=== PATIENT | male | born 1985 | race Caucasian/White ===

== ENCOUNTER 2020-01-05 10:54 | Emergency (ER) | payer OTHER, SELFPAY ==
[2020-01-05] VITALS (19 sets, daily range): BP systolic 117–128; BP diastolic 69–96; PULSE 63–98; RESP 15–32; TEMP 36.6; O2SAT 94–100
--- NOTE | ~2020-01-05 | XR_ITS ---
EXAMINATION: XR chest 1V portable 01/05/2020 12:43 INDICATION: Altered mental status. Overdose. PROCEDURE: AP portable chest COMPARISON: No prior studies for comparison. FINDINGS: The lungs are clear. The cardiomediastinal silhouette is within normal limits. There are no pleural effusions. There is no pneumothorax suspected. IMPRESSION: 1: NO ACUTE CARDIOPULMONARY DISEASE. Reviewed, dictated and finalized at location A.
--- NOTE | 2020-01-05 11:05 | ECG_ITS ---
Measurements Intervals [place] Rate: 71 P: 66 [place]: 143 QRS: 44 QRSD: 104 T: 41 QT: 435 QTc: 474 Interpretive Statements SINUS RHYTHM NORMAL ECG Electronically Signed On 01-05-2020 11:19:19 CDT by Ricco Mortensen D.O.
--- NOTE | 2020-01-05 11:06 | ED.AMS ---
HPI - Altered Mental Status General Chief Complaint: Altered Mental Status Stated Complaint: ?OD Time Seen by Provider: 01/05/20 10:58 Source: patient, RN notes reviewed and police Mode of arrival: ambulatory Limitations: no limitations History of Present Illness HPI narrative: Pt is a 34 y/o male presenting to the ED c/o AMS. Police at bedside reports the pt turned himself in at the Police station due to having outstanding warrants at 0900 this morning and within 15 minutes had vomited and experienced urinary incontinence, bowel incontinence, and diaphoresis. Pt states he currently feels fine compared to earlier, and denies any hallucinations, CP, or ABD pain. Pt states the only medication he has taken today is his daily prescription of 30 mg Buspar, and denies any drug use. Pt notes he has been drinking beer heavily over the past 4 days, and states he last consumed alcohol yesterday night. Pt reports he did not consume alcohol heavily before 4 days ago. Onset (ago): hour(s) (2) Context: alcohol abuse Associated symptoms: diaphoresis (Per Police), nausea/vomiting (Vomited (per Police)) and incontinence (Urinary (per Police); Bowel (per Police)) Related Data Home Medications Medication Instructions Recorded Confirmed buspirone mg 01/05/20 dextroamphetamine-amphetamine 01/05/20 trazodone 01/05/20 Allergies Allergy/AdvReac Type Severity Reaction Status Date / Time No Known Allergies Allergy Unverified 04/18/19 20:00 Review of Systems Review of Systems: Narrative: All systems reviewed & are unremarkable except as noted in HPI and below Cardiovascular: Cardiovascular: Denies chest pain and Reports diaphoresis (Per Police) Gastrointestinal: Gastrointestinal: Denies abdominal pain, Reports fecal incontinence (Per Police) and Reports vomiting (Per Police) Genitourinary: Genitourinary: Reports urinary incontinence (Per Police) Psychiatric: Psychiatric: Denies other (Hallucinations) PMFSH Past Medical History Medical History No significant past medical history Surgical History Surgical History No significant past surgical history Social History Social History Smoking status: Unknown if ever smoked Exam Narrative: Exam Narrative: GENERAL: Well-appearing, well-nourished, and in no acute distress. HEAD: Normocephalic, atraumatic EYES: PERRLA and EOMI, conjunctiva clear without discharge THROAT:Mucous membranes moist, Oropharynx normal without erythema, exudate, peritonsillar swelling or fluctuance NECK: Supple, without lymphadenopathy or mass RESPIRATORY: No respiratory distress, Airway patent, Respirations non-labored, Clear to auscultation without rales, rhonchi or wheeze HEART: Regular rate and rhythm. No murmur heard. Normal peripheral pulses. ABDOMEN: Soft, nontender, nondistended, normal active bowel sounds. No masses. No rebound or guarding, No organomegaly. EXTREMITIES: No edema, normal strength with full range of motion. SKIN: Warm, dry, normal color without rash NEURO: Alert and oriented x3. CN 2-12 grossly intact. No focal deficits. PSYCH: Normal mood and affect. Course Course Emergency Course: [facility]. Symptoms have all resolved on arrival. His vitals are normal and he is not exhibiting Delirium or withdrawal symptoms. Vital Signs Vital signs: Vital Signs Temperature 97.9 F 01/05/20 10:52 Pulse Rate 90 01/05/20 10:52 Respiratory Rate 22 H 01/05/20 10:52 Blood Pressure 128/77 01/05/20 10:52 Pulse Oximetry 97 01/05/20 10:52 Temperature 97.9 F 01/05/20 10:52 Pulse Rate 65 01/05/20 14:32 Respiratory Rate 16 01/05/20 14:32 Blood Pressure 126/96 H 01/05/20 14:32 Pulse Oximetry 100 01/05/20 13:02 MDM - Altered Mental Status Lab Data Attestation: I reviewed the patient
[2020-01-05 11:32] LABS: Basophils Percent Auto 0.4 % (0.2-1.2); Eosinophils Absolute Auto 0.1 K/mm3 (0-0.3); Eosinophils Percent Auto 0.9 % (0-4.4); Hematocrit 43.5 % (42.0-52.0); Immature Granulocyte Absolute 0.08 K/mm3 (0.00-0.031); Lymphocytes Absolute Auto 1.67 K/mm3 (0.9-3.2); Lymphocytes Percent Auto 21.7 % (18.3-44.2); Mean Corpuscular HGB Conc 34.5 g/dl (32-36); Mean Corpuscular Hemoglobin 32.1 pg (26-34); Mean Corpuscular Volume 93.1 fl (80-100); Mean Platelet Volume 8.6 fl (7.4-10.4); Monocytes Absolute Auto 0.5 K/mm3 (0.1-0.6); Monocytes Percent Auto 5.9 % (2.6-8.5); Neutrophils Absolute Auto 5.4 K/mm3 (1.3-6.7); Neutrophils Percent Auto 70.1 % (45.5-73.1); Platelet Count Result 294 k/mm3 (150-375); Red Blood Count 4.67 M/mm3 (4.6-6.20); Red Cell Distribution Width 13.1 % (11.5-14.5); White Blood Count 7.7 K/mm3 (4.5-10.0)
[2020-01-05 11:45] LABS: Creatine Kinase 195 U/L (55-170)
[2020-01-05 11:45] LABS: Alanine Aminotransferase 27 U/L (4-50); Albumin Level 4.4 g/dL (3.5-5.1); Alkaline Phosphatase 85 U/L (38-126); Aspartate Amino Transferase 40 U/L (17-59); Bilirubin,Total 0.3 mg/dL (0.2-1.3); Blood Urea Nitrogen 6 mg/dL (9-20); Carbon Dioxide 23 mmol/L (22-30); Chloride 103 mmol/L (98-107); Estimated Glomerular Filt Rate > 60; Glucose 233 mg/dL (75-110); Sodium 139 mmol/L (137-145)
[2020-01-05 11:54] LABS: Acetaminophen < 10 ug/mL (10-30); Ethanol 160 mg/dL (<10); Salicylate < 1.0 mg/dL (2-20)
[2020-01-05 11:56] LABS: Add Urine Microscopic? YES; Appearance Urine Clear (Clear); Bilirubin Urine Negative (Negative); Blood Urine Negative (Negative); Color Urine Yellow (Yellow); Glucose Urine UA 3+ mg/dL (Negative); Ketones Urine Negative (Negative); Leukocyte Esterase Ur Negative LEU/UL (Negative); Mucus Urine Rare /lpf; Nitrate Urine Negative (Negative); Protein Urine Negative (Negative); RBC Urine 0-2 /hpf (0-2); Specific Grav Ur 1.009 (1.001-1.035); Urobilinogen Urine Negative mg/dL (<2.0); WBC Urine 0-3 /hpf
[2020-01-05 12:17] LABS: Amphetamine Screen Urine Negative (Negative); Barbiturate Screen Urine Negative (Negative); Benzodiazepines Screen Urine Negative (Negative); Cannabinoid Screen Urine Positive (Negative); Cocaine Screen Urine Negative (Negative); Methadone Screen Urine Negative (Negative); Opiate Screen Urine Negative (Negative); Phencyclidine Screen Urine Negative (Negative)
[2020-01-05] MEDS: LACTATED RINGERS 1,000 ML 999 ML IV CONT (12:50)
[2020-01-05] MEDS: POTASSIUM CHLORIDE 20 MEQ TABLET 40 MEQ PO (12:53)
[2020-01-05] MEDS: ONDANSETRON INJ 4 MG/2 ML VIAL IV PUSH (12:53)
== END 2020-01-05 14:33 ==
PROVIDERS: Emergency Provider General Practice; Referring Provider Internal Medicine
DX: R11.2 Nausea with vomiting, unspecified (principal)
CPT/HCPCS: 36415; 71045; 80053; 80307; 81001; 82550; 84443; 85025; 93005; 96361; 96374; 99284; A9270; J2405; J7120

== ENCOUNTER 2022-03-14 20:54 | Emergency (ER) | payer BC, SELFPAY ==
[2022-03-14 21:06] VITALS: BP 117/86; PULSE 86; RESP 16; TEMP 36.8; O2SAT 100
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
[2022-03-14 22:11] LABS: Basophils Absolute Auto 0.1 K/mm3 (0.0-0.1); Basophils Percent Auto 1.3 % (0.2-1.2); Eosinophils Absolute Auto 0.2 K/mm3 (0-0.3); Eosinophils Percent Auto 2.6 % (0-4.4); Hematocrit 42.6 % (42.0-52.0); Hemoglobin 14.5 g/dL (14.0-18.0); Immature Granulocyte Absolute 0.06 K/mm3 (0.00-0.031); Immature Granulocyte Percent A 0.8 % (0-0.5); Lymphocytes Absolute Auto 2.58 K/mm3 (0.9-3.2); Lymphocytes Percent Auto 33.7 % (18.3-44.2); Mean Corpuscular Hemoglobin 31.4 pg (26-34); Mean Corpuscular Volume 92.2 fl (80-100); Mean Platelet Volume 8.7 fl (7.4-10.4); Monocytes Absolute Auto 0.5 K/mm3 (0.1-0.6); Monocytes Percent Auto 6.5 % (2.6-8.5); Neutrophils Absolute Auto 4.2 K/mm3 (1.3-6.7); Neutrophils Percent Auto 55.1 % (45.5-73.1); Platelet Count Result 358 k/mm3 (150-375); Red Blood Count 4.62 M/mm3 (4.6-6.20); Red Cell Distribution Width 12.6 % (11.5-14.5); White Blood Count 7.7 K/mm3 (4.5-10.0)
[2022-03-14 22:23] LABS: Acetaminophen < 10 ug/mL (10-30); Ethanol 252 mg/dL (<10); Salicylate < 1.0 mg/dL (2-20)
[2022-03-14 22:24] LABS: Alanine Aminotransferase 22 U/L (6-50); Albumin Level 4.2 g/dL (3.5-5.1); Alkaline Phosphatase 71 U/L (38-126); Anion Gap 13 mmol/L (8-16); Aspartate Amino Transferase 37 U/L (17-59); Bilirubin,Total 0.2 mg/dL (0.2-1.3); Blood Urea Nitrogen 10 mg/dL (9-20); Calcium 8.5 mg/dL (8.4-10.2); Carbon Dioxide 26 mmol/L (22-30); Chloride 107 mmol/L (98-107); Estimated CRCL calculation 93 ml/min; Estimated Glomerular Filt Rate > 60; Glucose 100 mg/dL (65-110); Sodium 146 mmol/L (137-145)
[2022-03-14 22:51] LABS: SARS-CoV-2 RNA PCR Negative
[2022-03-14 23:01] LABS: Mucus Urine Rare /lpf; RBC Urine 0-2 /hpf (0-2); WBC Urine 0-3 /hpf
[2022-03-14 23:14] LABS: Appearance Urine Clear (Clear); Bilirubin Urine Negative (Negative); Blood Urine Negative (Negative); Color Urine Yellow (Yellow); Glucose Urine UA Negative (Negative); Ketones Urine Trace mg/dL (Negative); Leukocyte Esterase Ur Negative LEU/UL (Negative); Nitrate Urine Negative (Negative); Protein Urine Negative (Negative); Specific Grav Ur >= 1.030 (1.001-1.035)
[2022-03-14 23:15] LABS: Add Urine Microscopic? YES
--- NOTE | 2022-03-14 23:21 | PC.NURSE ---
Report taken from MIKEL Matamoros. Pt resting on stretcher. Pt on 1:1 observation. Pt scores low on columbia scale due to how patient answers but pt has sitter at bedside due to statements he made to PA.
[2022-03-14 23:26] LABS: Amphetamine Screen Urine Negative (Negative); Barbiturate Screen Urine Negative (Negative); Benzodiazepines Screen Urine Negative (Negative); Cannabinoid Screen Urine Positive (Negative); Cocaine Screen Urine Negative (Negative); Methadone Screen Urine Negative (Negative); Opiate Screen Urine Negative (Negative); Phencyclidine Screen Urine Negative (Negative)
--- NOTE | 2022-03-14 23:51 | PC.NURSE ---
Pt becoming agitated and stating he wants to go home. transport driver at bedside to speak with pt.
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
[2022-03-15] MEDS: WATER, STERILE FOR INJECTION 10 ML VIAL XX (00:11)
[2022-03-15] MEDS: OLANZapine 10 MG INJ VIAL 5 MG IM (00:11)
--- NOTE | 2022-03-15 00:57 | PC.NURSE ---
Pt asleep on stretcher.
--- NOTE | 2022-03-15 04:51 | PC.NURSE ---
Patient resting comfortable in bed sleeping at this time
[2022-03-15 08:01] LABS: Ethanol 38 mg/dL (<10)
[2022-03-15 09:55] VITALS: BP 142/76; PULSE 90; RESP 16; O2SAT 98
== END 2022-03-15 10:20 | disposition home or self-care (01) ==
PROVIDERS: General Practice; Physician Assistant; Emergency Provider Emergency Medicine
DX: F41.9 Anxiety disorder, unspecified (principal); F32.A Depression, unspecified; F17.290 Nicotine dependence, other tobacco product, uncomplicated; Z20.822 Contact with and (suspected) exposure to COVID-19
CPT/HCPCS: 36415; 80053; 80307; 81001; 84443; 85025; 96372; 99284; C9803; U0003; U0005

== ENCOUNTER 2022-03-26 19:18 | Emergency (ER) | payer BC, SELFPAY ==
[2022-03-26 19:21] VITALS: BP 141/95; PULSE 125; RESP 20; TEMP 35.8; O2SAT 99
[2022-03-26] MEDS: oxyCODONE/ACETAMINOPHEN (*CRX) 5-325 MG TABLET 1 TABLET PO (20:41)
[2022-03-26] MEDS: AMOXICILLIN/CLAVULANATE K 875-125 MG TAB 1 TABLET PO (20:41)
--- NOTE | 2022-03-26 20:47 | ED.DENTAL ---
HPI - Dental/Oral General Chief complaint: Dental/Oral Stated complaint: dental Time Seen by Provider: 03/26/22 20:03 Source: patient History of Present Illness HPI Narrative: Patient presents with right upper jaw pain. Reports that pain for approximately 5 days got progressively worse and more severe over the last 3 days. Reports everything he does makes his teeth hurt. Talking swallowing reports his pain is achy, constant, radiates across his entire face. Denies any difficulty swallowing denies any fevers chills nausea vomiting or diarrhea. Reports sometimes he feels pus excreted out of his teeth Teeth map: 1. Location of pain Related Data Home Medications Medication Instructions Recorded Confirmed buspirone 30 mg tablet mg 01/05/20 dextroamphetamine-amphetamine 30 01/05/20 mg tablet trazodone 50 mg tablet 01/05/20 Allergies Allergy/AdvReac Type Severity Reaction Status Date / Time No Known Allergies Allergy Unverified 03/26/22 19:26 Review of Systems Review of Systems: CONSTITUTIONAL: Denies fever, chills, or sweats. EYES: Denies visual changes, redness, or discharge. ENT: Denies rhinorrhea, congestion, sore throat, or otalgia. CARDIOVASCULAR: Denies chest pain, palpitations, or edema. RESPIRATORY: Denies cough or dyspnea. GASTROINTESTINAL: Denies abdominal pain, nausea, vomiting, or diarrhea. GENITOURINARY: Denies dysuria or hematuria. SKIN: Denies rash or itching. MUSCULOSKELETAL: Denies back pain, joint pain, or myalgia. NEUROLOGIC: Denies headache, numbness, dizziness, or weakness. PSYCHIATRIC: Denies anxiety or depression. All systems reviewed & are unremarkable except as noted in HPI and below PMFSH Past Medical History Medical History ADHD Anxiety Depression No significant past medical history Surgical History Surgical History No significant past surgical history Social History Social History Smoking status: Current every day smoker Tobacco type: e-cigarettes/vaping Substance use type: marijuana Exam Narrative: GENERAL: Well-appearing, well-nourished, and in no acute distress. HEAD: Normocephalic, atraumatic. EYES: PERRLA and EOMI. ENT: Nares clear, no rhinorrhea or epistaxis. Mucous membranes moist. Diffusely poor dentition most noted at his molars there are multiple fractured teeth there is no focal fluid collection appreciated there is diffuse tenderness on his left upper molars NECK: Supple. No masses. No JVD EXTREMITIES: Normal range of motion. No edema. SKIN: Warm, dry, no rash. NEURO: No focal deficits. Alert and oriented x3. PSYCH: Normal mood and affect. Course Vital Signs Vital signs: Vital Signs Temperature 35.8 C L 03/26/22 19:21 Pulse Rate 125 H 03/26/22 19:21 Respiratory Rate 20 03/26/22 19:21 Blood Pressure 141/95 H 03/26/22 19:21 Pulse Oximetry 99 03/26/22 19:21 Oxygen Delivery Room Air 03/26/22 19:21 Temperature 35.8 C L 03/26/22 19:21 Pulse Rate 125 H 03/26/22 19:21 Respiratory Rate 20 03/26/22 19:21 Blood Pressure 141/95 H 03/26/22 19:21 Pulse Oximetry 99 03/26/22 19:21 Oxygen Delivery Room Air 03/26/22 19:21 MDM - Dental/Oral MDM Narrative Medical decision making narrative: H&P as above, vss, pt looks clinically well, exam diffusely poor dentition no focal fluctuance appreciated no apparent material breast labs/img considered, symptomatic relief available as needed, on reevaluation pt continues to looks clinically well. Suspect dental abscess dns Byron's angina, necrotizing soft tissue infection, severe sepsis, severe dehydration, airway compromise. plan to tx/monitor as op w/ pcm f/u findings/plan discussed with pt, pt agree/comfortable with plan, return precautions given patient was counseled on the importance of following up with a
== END 2022-03-26 21:11 | disposition home or self-care (01) ==
PROVIDERS: Emergency Provider Emergency Medicine
DX: K04.7 Periapical abscess without sinus (principal); F17.290 Nicotine dependence, other tobacco product, uncomplicated
CPT/HCPCS: 99283; A9270

== ENCOUNTER 2022-04-27 20:45 | Emergency (ER) | payer BC, SELFPAY ==
[2022-04-27 20:45] VITALS: BP 139/96; PULSE 97; RESP 18; TEMP 36.9; O2SAT 95
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
== END 2022-04-27 21:16 | disposition left against medical advice (07) ==
PROVIDERS: Emergency Provider Family Medicine
DX: F10.10 Alcohol abuse, uncomplicated (principal); Y90.9 Presence of alcohol in blood, level not specified; F90.9 Attention-deficit hyperactivity disorder, unspecified type; F41.9 Anxiety disorder, unspecified; F32.A Depression, unspecified; F17.290 Nicotine dependence, other tobacco product, uncomplicated
CPT/HCPCS: 99283

== ENCOUNTER 2022-08-03 20:25 | Emergency (ER) | payer BC, SELFPAY ==
[2022-08-03 20:29] VITALS: BP 114/86; PULSE 114; RESP 18; TEMP 36.6; O2SAT 100
--- NOTE | 2022-08-03 22:07 | PC.NURSE ---
patient states You are taking way too lng, I have a life and left from triage area
== END 2022-08-03 22:06 | disposition left against medical advice (07) ==
LOC: ANHED 22:21
DX: R47.81 Slurred speech (principal)
CPT/HCPCS: 99199

== ENCOUNTER 2023-07-15 15:04 | Emergency (ER) | payer SELFPAY ==
[2023-07-15 15:20] VITALS: BP 113/82; PULSE 106; RESP 18; TEMP 36.5; O2SAT 98
--- NOTE | 2023-07-15 15:26 | ED.GENADULT ---
HPI - General Adult General Chief complaint: Nausea/Vomiting/Diarrhea Stated complaint: Chest Pain and Stomach Irritation Time Seen by Provider: 07/15/23 15:05 Source: patient Mode of arrival: ambulatory Limitations: no limitations History of Present Illness HPI narrative: 37-year-old male presents to [facility] complaints of cough, back pains with coughing, body aches, chills, nausea, vomiting and headache for the past 4 days since eating oysters and sushi. Patient reports that symptoms are improving and he is now able to eat chicken and salad and eat ice. Patient states ?I just feel like a stale chip but your body does change every 7 years ago. ? Patient reports that he missed work and needs a work excuse to return back to work. Patient denies fever, body aches, chills, diarrhea, shortness of breath or wheezing. Onset (ago): day(s) (4) Relieving factors: none Exacerbating factors: none Associated symptoms: denies other symptoms Treatments prior to arrival: NSAID Related Data Home Medications Medication Instructions Recorded Confirmed No Home Medications 07/15/23 07/15/23 Allergies Allergy/AdvReac Type Severity Reaction Status Date / Time No Known Allergies Allergy Verified 07/15/23 15:20 Review of Systems Constitutional: Constitutional: Denies fatigue, Denies fever(s) and Denies weakness ENT: Denies vertigo, Denies dizziness and Denies nasal congestion Respiratory: Respiratory: Denies cough Gastrointestinal: Gastrointestinal: Denies abdominal pain, Denies diarrhea, Reports nausea and Reports vomiting Integumentary/Breasts: Skin/Breast: Denies rash Neurologic: Denies dizziness, Denies syncope and Reports headache(s) [facility] Past Medical History Medical History ADHD Anxiety Depression No significant past medical history Surgical History Surgical History No significant past surgical history Social History Social History Smoking status: Current every day smoker Tobacco type: e-cigarettes/vaping Substance use type: marijuana Comments At time of signature, I agree with nursing past medical, surgical, social and family history. There is no relevant family history pertinent to the presenting complaint. Exam Const: General: healthy appearing and no acute distress Nutritional Appearance: well nourished Orientation/consciousness: patient oriented x3 Limitations: no limitations HENMT: Head: normal to inspection Mouth: Yes Normal oral and palatal mucosa present, Yes lip normal and Yes moist mucous membranes Teeth and gingiva: dentition normal Throat: posterior oropharynx normal and uvula midline Eyes: Conjunctivae: conjunctivae normal Neck: Neck: normal visual inspection Resp: Effort & Inspection: normal respiratory effort and not labored Auscultation: clear to auscultation bilaterally, no crackles, no rales and no rhonchi Cardio: Rate: regular rate Rhythm: regular rhythm Heart sounds: no murmurs GI: Inspection: non-distended GI Palp: Yes Soft to palpation, No Tenderness to palpation present (GI), No Guarding due to palpation present (GI), No Rigid due to palpation and No Hernia present Auscultation: normal bowel sounds Skin: General skin exam: normal color Rashes: no rashes Wounds: no wounds Neuro: General: patient oriented x3 Speech: normal speech Gait exam (Neuro): Normal gait present Psych: Affect: normal affect Attitude: cooperative Course Course Level of Care: Express Care Visit Vital Signs Vital signs: Vital Signs Temperature 36.5 C 07/15/23 15:20 Pulse Rate 106 H 07/15/23 15:20 Respiratory Rate 18 07/15/23 15:20 Blood Pressure 113/82 07/15/23 15:20 Pulse Oximetry 98 07/15/23 15:20 Oxygen Delivery Room Air 07/15/23 15:20 Temperature 36.5 C 07/15/23 15:20 Pulse Rate 106 H
== END 2023-07-15 15:55 | disposition home or self-care (01) ==
PROVIDERS: Emergency Provider Nurse Practitioner Family
DX: B34.9 Viral infection, unspecified (principal); Z20.822 Contact with and (suspected) exposure to COVID-19; F17.290 Nicotine dependence, other tobacco product, uncomplicated; F12.90 Cannabis use, unspecified, uncomplicated
CPT/HCPCS: 87426; 99213; C9803; G0463

== ENCOUNTER 2023-09-07 17:47 | Emergency (ER) | payer SELFPAY ==
[2023-09-07 17:49] VITALS: BP 132/75; PULSE 95; RESP 17; TEMP 36.3; O2SAT 97
== END 2023-09-07 18:15 | disposition left against medical advice (07) ==
LOC: ANHED 18:45
DX: S69.91XA Unspecified injury of right wrist, hand and finger(s), initial encounter (principal); X58.XXXA Exposure to other specified factors, initial encounter
CPT/HCPCS: 99199

== ENCOUNTER 2024-02-28 13:43 | Emergency (ER) | payer SELFPAY ==
[2024-02-28 13:54] VITALS: BP 154/113; PULSE 95; RESP 18; TEMP 36.6; O2SAT 98
--- NOTE | 2024-02-28 14:06 | ED.GENADULT ---
HPI - General Adult General Chief complaint: Upper Respiratory Infection Stated complaint: Vomiting,Diarrhea,Headache Source: patient and RN notes reviewed Mode of arrival: ambulatory Limitations: no limitations History of Present Illness HPI narrative: 38-year-old male history of anxiety and depression presented for complaint of nausea, vomiting, diarrhea over the past 3 days. He states he is unable to keep any food down. Endorses about 3 episodes of stools and vomiting daily. Admits to taking himself off of trazodone, Adderall, and hydroxyzine because does not like the way it makes me feel. ? Denies any changes to diet. Denies contacts with similar symptoms. Denies abdominal pain, hematochezia, melena, hematemesis, fever or chills. Pt also admits to alcoholism, last drink was 30 minutes [employer], at least 2 shots. States he drinks about 10 shots of 99 proof alcohol daily. Smokes over 1g marijuana daily. Requesting work note. States I feel fine otherwise. Related Data Home Medications Medication Instructions Recorded Confirmed Adderall 02/28/24 hydroxyzine HCl 02/28/24 trazodone 02/28/24 Allergies Allergy/AdvReac Type Severity Reaction Status Date / Time No Known Allergies Allergy Verified 02/28/24 14:01 Review of Systems Review of Systems: CONSTITUTIONAL: Denies body aches, fever, chills ENT: Denies rhinorrhea, congestion CARDIOVASCULAR: Denies chest pain, palpitations, or edema. RESPIRATORY: Denies cough or dyspnea. GASTROINTESTINAL: Endorses nausea, vomiting, diarrhea. Denies abdominal pain, hematochezia, melena, hematemesis GENITOURINARY: Denies dysuria, hematuria, or CVA tenderness. SKIN: Denies rash, itching, or wounds. MUSCULOSKELETAL: Denies back pain, joint pain, or myalgia. NEUROLOGIC: Denies headache, numbness, tingling, or weakness. All systems reviewed & are unremarkable except as noted in HPI and below PMFSH Past Medical History Medical History ADHD Anxiety Depression No significant past medical history Surgical History Surgical History No significant past surgical history Social History Social History (Updated 02/28/24 @ 14:56 by WESTON De La Rosa Smoking status: Current every day smoker Tobacco type: e-cigarettes/vaping Alcohol intake: current Drinks per week: 70 Alcohol use details: 10 shots of 99proof Substance use: current Substance use type: marijuana Comments At time of signature, I have reviewed and agree with nursing past medical, surgical, social and family history unless otherwise noted. Please see nursing chart for further information. There is no relevant family history pertinent to the presenting complaint Exam Narrative: GENERAL: Well-appearing, and in no acute distress. EYES: EOMI. Conjunctivae normal. ENT: Mucous membranes pink and moist. CHEST: No respiratory distress. Clear to auscultation. HEART: Regular rate and rhythm. No murmur appreciated. Normal peripheral pulses. ABDOMEN: abd soft, nondistended, normal active bowel sounds. Nontender abdomen; No guarding, rebound tenderness, asymmetry EXTREMITIES: Normal range of motion. No edema. SKIN: Warm, dry, no rash. Capillary refill normal. Normal skin turgor. NEURO: No focal deficits. Alert and oriented x3. PSYCH: anxious/talkative; denies si/hi. Course Course Emergency Course: Patient is aware of diagnosis, understands and agrees to treatment plan. Anticipatory guidance given. Patient agrees to follow-up as directed and is aware of reasons to seek care at the emergency department. Portions of this record may have been created with voice recognition software Level of Care: Express Care Visit Vital Signs Vital signs: Vital Signs Temperature 97.8 F 02/28/24 13:54 Pulse Rate 95 02/28/24 13:54 Respiratory Rate 18 02/28/24 13:54 Blood Pressure 1
== END 2024-02-28 14:30 | disposition home or self-care (01) ==
PROVIDERS: Emergency Provider Nurse Practitioner Family
DX: R11.10 Vomiting, unspecified (principal); F39 Unspecified mood [affective] disorder; F17.290 Nicotine dependence, other tobacco product, uncomplicated; F12.90 Cannabis use, unspecified, uncomplicated
CPT/HCPCS: 99213; G0463

== ENCOUNTER 2024-03-14 12:23 | Emergency (ER) | payer SELFPAY ==
[2024-03-14 12:35] VITALS: BP 135/99; PULSE 87; RESP 18; TEMP 36.3; O2SAT 93
--- NOTE | 2024-03-14 13:10 | ED.URI ---
HPI - URI/Sore Throat General Chief Complaint: Upper Respiratory Infection Stated Complaint: cough, congestion, sorethroat Time Seen by Provider: 03/14/24 12:40 Source: patient Mode of arrival: ambulatory Limitations: no limitations History of Present Illness HPI Narrative: Adi is a 38-year-old male patient presenting to the clinic today with complaints of a runny nose, cough, sore throat, and congestion. He reports he is needing a work note for today. He denies any fever or chills. States that he took Xanax bar yesterday to help him feel better and he has taken 2 shots of 99 (alcohol)today. Denies any shortness of breath or chest pain. MD elicited complaint: sore throat and nasal congestion Related Data Home Medications Medication Instructions Recorded Confirmed No Home Medications 03/14/24 03/14/24 Allergies Allergy/AdvReac Type Severity Reaction Status Date / Time No Known Allergies Allergy Verified 03/14/24 12:32 Review of Systems Review of Systems: Pertinent positives per HPI. Patient denies any fever, chills, rash, headache, visual changes, dizziness, shortness of breath, chest pain, palpitations, nausea, vomiting, diarrhea, constipation, abdominal pain, or any urinary issues. [facility] Past Medical History Medical History ADHD Anxiety Depression No significant past medical history Surgical History Surgical History No significant past surgical history Social History Social History Smoking status: Current every day smoker Tobacco type: e-cigarettes/vaping Alcohol intake: current Drinks per week: 70 Alcohol use details: 10 shots of 99proof Substance use: current Substance use type: marijuana Comments At the time of my signature, I reviewed and agree with the nursing past medical, surgical, social, and family history. There is no relevant family history pertinent to the patient complaint. Exam Narrative: General: Well-developed, well nourished, in no apparent distress Head: Normocephalic, atraumatic Eyes: Pupils equally round and reactive to light bilaterally, EOM intact, sclera and conjunctive clear, no discharge, lids normal Ears: TMs intact and clear, ear canals clear, no drainage, grossly hearing normal. Nose: Nares patent, clear nasal discharge, no inflammation, no sinus tenderness. Mouth: Oral pharynx mildly red without lesions or masses, good dentition, MMM. Neck: Supple, trachea midline, no enlargement of anterior or posterior cervical nodes, no thyroid masses or goiter palpable. Cardio: Regular rate and rhythm, s1 and s2 normal, no murmur appreciated. Resp: Clear to auscultation bilaterally, no rhonchi, rales, wheezing or rubs Course Course Emergency Course: Portions of this record may have been created with voice recognition software. Level of Care: Express Care Visit Vital Signs Vital signs: Vital Signs Temperature 36.3 C L 03/14/24 12:35 Pulse Rate 87 03/14/24 12:35 Respiratory Rate 18 03/14/24 12:35 Blood Pressure 135/99 H 03/14/24 12:35 Pulse Oximetry 93 03/14/24 12:35 Oxygen Delivery Room Air 03/14/24 12:35 Temperature 36.3 C L 03/14/24 12:35 Pulse Rate 87 03/14/24 12:35 Respiratory Rate 18 03/14/24 12:35 Blood Pressure 135/99 H 03/14/24 12:35 Pulse Oximetry 93 03/14/24 12:35 Oxygen Delivery Room Air 03/14/24 12:35 Vital signs reviewed MDM - URI/Sore Throat MDM Narrative Medical decision making narrative: At the time of visit patient is resting comfortably on the exam table. Patient appears to be nontoxic. Labs: COVID, influenza, and strep test were all negative in the clinic today. We will send strep for culture. Plan: I suspect patient has URI. Also has polysubstance abuse. Work note was given for today Supportive m
[2024-03-14 13:12] VITALS: O2SAT 98
== END 2024-03-14 13:14 | disposition home or self-care (01) ==
PROVIDERS: Emergency Provider Nurse Practitioner Family
DX: J06.9 Acute upper respiratory infection, unspecified (principal); F19.90 Other psychoactive substance use, unspecified, uncomplicated; Z20.822 Contact with and (suspected) exposure to COVID-19; F12.90 Cannabis use, unspecified, uncomplicated; F17.290 Nicotine dependence, other tobacco product, uncomplicated
CPT/HCPCS: 87081; 87426; 87804; 87880; 99213; G0463

== ENCOUNTER 2025-10-28 01:19 | Emergency (ER) | payer SELFPAY ==
--- OUTSIDE RECORDS SUMMARY | 2025-10-28 01:21 | XMS_ITS | Patient Health Record ---
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 Name Role Phone Sherlyn JAVED Herlinda Primary Care Provider Allergies No Known Allergies Reason For Referral No Information Medications Medication SIG (Take, Route, Frequency, Duration) Notes Start Date End Date Diagnosis (ICD Code) Status Escitalopram Oxalate 20 MG Tablet 1 tablet Orally at night; Duration: 14 days 08/30/2021 Depression, major (ICD_10 - F32.9) Active hydrOXYzine HCl 50 MG Tablet 1-2 tablet Orally once daily as needed for sleep/anxiety; Duration: 30 days 12/14/2021 RADHIKA (generaliz ed anxiety disorder) (ICD_10 - F41.1) Active traZODone HCl 100 MG Tablet 0.5-1 tablet at bedtime Orally at night; Duration: 14 days 05/22/2022 Depression, major (ICD_10 - F32.9) Active Social History Tobacco Use: Social History Observation Description Date Details (start date - stop date) Never Smoker NA - NA Sex Observation Social History Observation Description Sex Observation Male Sexual Orientation Social History Observation Description Sexual Orientation Straight or heterose xual Gender Identity Social History Observation Description Gender Identity Male Social History Miscellaneous Social Info Question Answer Notes Method of learning: Preferred method of learning: Demo nstration,Hearing Primary Social History Social Info Question Answer Notes Living Arrangement Living Arrangement: Independent Jenni ing Is this a supportive environment? Yes Employment Status Employment Status: Employed [employer] Illicit Substance Usage Illicit Substance Usage: No None in 3 years. Reports history of cocaine and methamphetamine use Alcohol Use Alcohol Use Frequency: Weekly or Daily None since starting Vivitrol Type of alcohol consumed Liquor, Beer Quanity consumed on those occasions patient states he would drink whatever he could get his hands on. Typically would do about 6 double shots a day. Last drank 03/06/2021 Drugs/Alcohol: Social Info Question Answer Notes Drugs Have you used drugs other than those for medical reasons in the past 12 months? Yes Marijuana? Yes Household: Social Info Question Answer Notes Household Marital status: going throug h a divorce Number of adults in household: 2 Tobacco Use: Social Info Question Answer Notes Dont use, Tobacco Use/Smoking Are you a nonsmoker Additional Details Category Social Info Options Details Past Medication Use Do you use nicotine other than cigarettes? no Yes- Vape 5% Past Psychiatric Medications Bus par, Trazodone, Adderall, Lexapro, Remeron, Vyvanse- makes me feel weird 5 years, Strattera Past Psychiatric Diagnoses ADHD Drugs/Alcohol: Do you smoke marijuana? Ad mits Do you drink alcohol? Yes- last time 7 days Problems Problem Type SNOMED Code ICD Code Dates Problem Status W/U Status Risk Notes Problem Tobacco user (571249827) Nicotine dependence, unspecified, uncomplicated (F17.200) Added On:04/29 Active confirmed Problem Attention deficit hyperactivity disorder (690784685) ADHD (attention deficit hyperactivity disorder), combined type (F90.2) Added On:02/2017 Active confirmed Problem Anxiety (48374433) Anxiety (F41.9) Added On:01/28 Active confirmed Problem Generalized anxiety disorder (12065096) RADHIKA (generalized anxiety disorder) (F41.1) Added On:02/27 Onset Date: 021 Active confirmed RADHIKA-7 20 Problem Major depression, single episode (00960994) Depression, major (F32.9) Added On:02/27 Onset Date: Active confirmed Problem History of psychiatric disorder (161701233) History of ADHD (Z86.59) Added On:02/27 Active confirmed reports diagnosis in childhood prior to age 12. Adult ADHD scored total 18 with 6 in part A and 12 symptoms in part B meeting criteria Problem Alcohol use disorder (0671488430) Alcohol use disorder (F10.99) Added On:02/26 Active confirmed Problem Obesity (299450710) Obesity (BMI 30-39.9) (E66.9) Added On:02/27 Active confirmed Problem Posttraumatic stress disorder (36535342) Post traumatic stress disorder (PTSD) (F43.10) Added On:10/2020 Onset Date: Active confirmed Prior PCL 5 39- most recent traumatic event 03/06- will need to further assess Problem Insomnia (549819037) Insomnia, unspecified type (G47.00) Added On:09/28 Active confirmed Problem Acute stress disorder (55851919) Acute reaction to situational stress (F43.0) Added On:02/27 Onset Date: Active confirmed reports traumatic event march 06 Problem Mild major depression, single episode (07467192) Current mild episode of major depressive disorder without prior episode (F32.0) Added On:11/2020 Active confirmed Plan Of Treatment No Information Insurance Providers Payer Name Payer Address Payer Phone Subscriber Number Group Number Insured Name Patient Relationship to Insured Coverage Start Date Coverage End Date [facility] [address] [place] [address] [phone] [id number] Adi Schultz Self - patient is the insured 1 [address]ID [address] [place] [address] [id number] Adi Schultz Self - patient is the insured 8 [address] [place] [address] [id number] Adi Schultz Self - patient is the insured 8 1 [employer] [address] [place] [address] [id number] Adi Schultz Self - patient is the insured 1 1 [facility] [address] [place] [address] [id number] Adi Schultz Self - patient is the insured 1 Medications Administered Medication Instructions Date of Administration Dosage Diagnosis (ICD Code) Notes Vivitrol 03/15/2021 380 mg 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 Pt tolerated well. Voiced no questions or concerns at present time. Medical (General) History Medical History History ICD Code ADHD Surgical History Surgery Date(Month/Year) umbilical hernia repair bi lateral wrist repair Hospitalization History Reason Date(Month/Year) [facility] for SI/depression- cut wrists March 2022 Childhood for ADHD behaviors [facility] for medication adjust ements 1993
== END 2025-10-28 02:15 | disposition left against medical advice (07) ==
DX: Z53.21 Procedure and treatment not carried out due to patient leaving prior to being seen by health care provider (principal)
CPT/HCPCS: 99199

== ENCOUNTER 2025-10-28 09:24 | Emergency (ER) | payer OTHER, SELFPAY ==
--- NOTE | 2025-10-28 09:25 | ED_ITS ---
HPI - Dental/Oral General Chief complaint: Dental/Oral Stated complaint: Dental/Oral Time Seen by Provider: 10/28/25 09:25 Source: patient Mode of arrival: ambulatory Limitations: no limitations History of Present Illness HPI Narrative: Patient is a 40-year-old male who presents with right lower dental pain and swelling that started yesterday. Patient has dental appointment 11/09. has been taking ibuprofen, heating pad, ice, wiskey. Related Data Allergies Allergy/AdvReac Type Severity Reaction Status Date / Time nickel Allergy Mild Rash Verified 10/28/25 09:36 Review of Systems Review of Systems: All systems reviewed & are unremarkable except as noted in HPI and below Constitutional: Constitutional: Denies body ache(s), Denies fever(s), Denies headache(s), Denies malaise and Denies weakness Eyes: Eyes: Denies loss of vision ENT: Denies otalgia, Reports facial pain (jaw), Denies headache(s), Reports mouth pain, Denies nasal discharge, Denies sinus pain and Denies sore throat Cardiovascular: Cardiovascular: Denies chest pain, Denies irregular heart rhythm and Denies dyspnea Respiratory: Respiratory: Denies dyspnea Gastrointestinal: Gastrointestinal: Denies abdominal pain, Denies melena, Denies hematochezia, Denies diarrhea, Denies nausea and Denies vomiting Musculoskeletal: Musculoskeletal: Denies back pain, Denies myalgias and Denies arthralgias Integumentary/Breasts: Skin/Breast: Denies pruritus and Denies rash Neurologic: Denies headache(s), Denies loss of vision and Denies weakness Psychiatric: Psychiatric: Reports no additional psychiatric complaints [facility] Past Medical History Medical History ADHD Anxiety Depression No significant past medical history Surgical History Surgical History No significant past surgical history Social History Social History Smoking status: Current every day smoker Tobacco type: e-cigarettes/vaping Alcohol intake: current Drinks per week: 70 Alcohol use details: 10 shots of 99proof Substance use: current Substance use type: marijuana Comments At time of signature, agree with nursing past medical, surgical, social and family history. There is no relevant family history pertinent to the presenting complaint. Exam Const: General: cooperative, healthy appearing, comfortable, no acute distress and well nourished Nutritional Appearance: well nourished Orientation/consciousness: patient oriented x3 Limitations: no limitations HENMT: Head: normal to inspection, normocephalic and atraumatic Ears: hearing grossly normal bilaterally, external ears normal, TM's normal bilaterally and mastoids normal bilaterally Face/Nose/Sinus: Normal external nose present, normal facial exam and face symmetric Face and sinus: normal facial exam and face symmetric Mouth: Yes Normal oral and palatal mucosa present, Yes lip normal, Yes tongue normal, Yes Normal salivary glands and ducts present and Yes moist mucous membranes Teeth and gingiva: abnormal tooth and associated gingiva lower right first molar tender and other (tooth broken off or decayed to the same level as gum), caries, multiple restorations and poor dentition Other: The tooth in question is very carious and the gum is swollen and tender around it. There is no facial swelling, cervical or submandibular lymphadenopathy. The patient appears uncomfortable and in pain. Eyes: General: appearance normal, both eyes and all related structures Alignment and Position: alignment normal and position normal Periorbital: periorbital findings normal Eyelids: eyelids normal Pupils: Equal, round and reactive pupils present EOM: EOMs intact bilaterally Neck: Neck: normal visual inspection, full ROM, no lymphadenopathy and supple Chest: Chest palpation & inspection: normal inspection of the chest Resp: Effort & Inspection: normal respiratory effort and able to speak in complete sentences Auscultation: clear to auscultation bilaterally Cardio: Rate: regular rate Rhythm: regular rhythm Heart sounds: S1 normal heart sound present and S2 normal heart sound present GI: Inspection: normal to inspection Skin: General skin exam: normal color and no rashes or lesions noted Neuro: General: patient oriented x3 and moves all extremities Cranial nerves: Yes Equal, round and reactive pupils present Speech: normal speech Gait exam (Neuro): Normal gait present Extrem: General: normal to inspection, full ROM and no edema Psych: Appearance: grossly normal and well kempt Mental Status: mental status grossly normal Speech and movement: Normal speech and movement present Affect: normal affect Attitude: cooperative Thought process: Normal thought process present Course Course Level of Care: Express Care Visit MDM MDM Narrative Medical decision making narrative: Patients pain and complaint coupled with physical findings are consistant with dentalgia. There are no focal signs of space occupying lesions that are compromising to the airway; no dysphagia, odynophagia, dysphonia, or dyspnea. No uvular deviation or soft palate edema. Patient is non-toxic appearing. The floor of the mouth is soft with no signs of Maurice's Angina; no induration below mandible, no neck pain. Patient is without trismus or drooling and able to swallow secretions. Patient is felt appropriate for discharge home with dental follow up. Differential Diagnosis Differential Diagnosis: Differential diagnostic considerations for dental issues include gingival abscess, dental caries, toothache, dental abscess, fracture of tooth, aphthous ulcer, TMJ. Medical Records I have reviewed the following patient records and this information was taken into consideration when formulating the assessment and plan.: previous clinic visits Discharge Plan Discharge Clinical Impression: Dental infection Patient Disposition: Home Condition: Stable Instructions: Toothache (ED) Additional Instructions: Take antibiotic until it's gone. Brushing teeth at least twice daily with gentle flossing. Avoid temperature extremes---when you eat. Salt gargle to rinse your mouth after every meal You may apply ice to the face to reduce pain/swelling. For pain, you may take: Tylenol 650-1000mg by mouth every 4-6 hours. Do not exceed 4000mg in 24 hours. Advil (Ibuprofen) 600 mg by mouth every 6 hours. Do not exceed 2400mg in 24 hours. Also, recommend regular dental check up one-two times a year to prevent tooth decay and other periodontal disease. Follow-up with the dentist as soon as possible--see the list provided Patient Language: Icelandic Prescriptions: New amoxicillin-pot clavulanate 875-125 mg tablet 1 tablet PO Q12H 14 Days Qty: 28 0RF Follow-up/Referrals: Hola Hollins MD [Physician, Family Practice] - 3 Days Stand Alone Forms: Work/School Release IP Time of Disposition: 09:42
[2025-10-28 09:35] VITALS: BP 139/94; PULSE 96; RESP 18; TEMP 36.2; O2SAT 98
--- NOTE | 2025-10-31 19:52 | ED.DENTAL ---
HPI - Dental/Oral General Chief complaint: Dental/Oral Stated complaint: Dental/Oral Time Seen by Provider: 10/28/25 09:25 Source: patient Mode of arrival: ambulatory Limitations: no limitations History of Present Illness HPI Narrative: 40 y/o male presented for a work note. Pt states he was seen on 10/28, given return to work on 10/29 Related Data Allergies Allergy/AdvReac Type Severity Reaction Status Date / Time nickel Allergy Mild Rash Verified 10/28/25 09:36 PMFSH Past Medical History Medical History ADHD Anxiety Depression No significant past medical history Surgical History Surgical History No significant past surgical history Social History Social History Smoking status: Current every day smoker Tobacco type: e-cigarettes/vaping Alcohol intake: current Drinks per week: 70 Alcohol use details: 10 shots of 99proof Substance use: current Substance use type: marijuana Course Vital Signs Vital signs: Vital Signs Temperature 97.2 F L 10/28/25 09:35 Pulse Rate 96 10/28/25 09:35 Respiratory Rate 18 10/28/25 09:35 Blood Pressure 139/94 H 10/28/25 09:35 Pulse Oximetry 98 10/28/25 09:35 Oxygen Delivery Room Air 10/28/25 09:35 Temperature 97.2 F L 10/28/25 09:35 Pulse Rate 96 10/28/25 09:35 Respiratory Rate 18 10/28/25 09:35 Blood Pressure 139/94 H 10/28/25 09:35 Pulse Oximetry 98 10/28/25 09:35 Oxygen Delivery Room Air 10/28/25 09:35 Discharge Plan Discharge Clinical Impression: Dental infection Patient Disposition: Home Condition: Stable Instructions: Toothache (ED) Additional Instructions: Take antibiotic until it's gone. Brushing teeth at least twice daily with gentle flossing. Avoid temperature extremes---when you eat. Salt gargle to rinse your mouth after every meal You may apply ice to the face to reduce pain/swelling. For pain, you may take: Tylenol 650-1000mg by mouth every 4-6 hours. Do not exceed 4000mg in 24 hours. Advil (Ibuprofen) 600 mg by mouth every 6 hours. Do not exceed 2400mg in 24 hours. Also, recommend regular dental check up one-two times a year to prevent tooth decay and other periodontal disease. Follow-up with the dentist as soon as possible--see the list provided Patient Language: Djiboutian Prescriptions: New amoxicillin-pot clavulanate 875-125 mg tablet 1 tablet PO Q12H 14 Days Qty: 28 0RF Follow-up/Referrals: Hola Hollins MD [Physician, Family Practice] - 3 Days Stand Alone Forms: Work/School Release IP Time of Disposition: 09:42
== END 2025-10-28 09:45 | disposition home or self-care (01) ==
PROVIDERS: Emergency Provider Nurse Practitioner Family
DX: K04.7 Periapical abscess without sinus (principal); F17.290 Nicotine dependence, other tobacco product, uncomplicated; F12.90 Cannabis use, unspecified, uncomplicated
CPT/HCPCS: 99213; G0463